=== PATIENT | male | born 1950 | race Caucasian/White ===

== ENCOUNTER 2022-09-03 22:06 | Inpatient (IN) | payer MEDICARE, OTHER ==
[~2022-09-03] VITALS: Ht 175.3 cm; Wt 94.8 kg
[2022-09-03 23:06] LABS: BASOPHILS ABSOLUTE AUTO 0.04 K/mm3 (0.00-0.23); BASOPHILS PERCENT AUTO 0 % (0-2); EOSINOPHILS PERCENT AUTO 0 % (0-6); Hematocrit 50.5 % (37.0-53.0); Hemoglobin 17.3 g/dL (13.5-17.5); IMMATURE GRAN ABSOLUTE AUTO 0.04 K/mm3 (0.00-0.10); IMMATURE GRAN PERCENT AUTO 0 % (0-1); LYMPHOCYTES ABSOLUTE AUTO 0.78 K/mm3 (0.84-5.20); LYMPHOCYTES PERCENT AUTO 7 % (21-46); MONOCYTES ABSOLUTE AUTO 0.53 K/mm3 (0.16-1.47); MONOCYTES PERCENT AUTO 4 % (4-13); Mean Corpuscular HGB 31.1 pg (26.0-34.0); Mean Corpuscular HGB Conc 34.3 g/dL (31.5-36.5); Mean Corpuscular Volume 91 fL (80-100); Mean Platelet Volume 9.7 fL (9.1-12.4); NEUTROPHILS ABSOLUTE AUTO 10.64 K/mm3 (1.96-9.15); NEUTROPHILS PERCENT AUTO 89 % (41-73); Platelet Count 206 K/mm3 (150-400); RDW Standard Deviation 39.8 fL (35.1-46.3); Red Blood Cell Count 5.56 M/mm3 (4.30-5.90); White Blood Cell Count 12.03 K/mm3 (4.00-11.30)
[2022-09-03 23:31] LABS: Albumin, Blood 4.3 g/dL (3.4-5.0); Albumin/Globulin Ratio 1.2 (0.8-1.8); Bilirubin, Total 1.1 mg/dL (0.1-1.0); Bun/Creatinine Ratio 20.2 (12.0-20.0); Calcium, Blood 9.5 mg/dL (8.5-10.1); Creatinine, Blood 0.84 mg/dL (0.60-1.20); Globulin, Blood 3.6 g/dL (2.2-4.0); Potassium, Blood 4.8 mmol/L (3.5-5.5); Total Protein, Blood 7.9 g/dL (6.4-8.2)
[2022-09-04] VITALS (16 sets, daily range): BP systolic 109–157; BP diastolic 55–86
[2022-09-04] MEDS ORDERED: CELEBREX200 MG PO (01:23)
[2022-09-04] MEDS ORDERED: EUTHYROX100 MC1 PO (01:24)
[2022-09-04] MEDS ORDERED: Simvastatin40 MG PO (01:24)
[2022-09-04] MEDS ORDERED: LOSARTAN POTASS25 M2 PO (01:24)
[2022-09-04] MEDS ORDERED: TAMSULOSIN HCL0.4 M1 PO (03:36)
--- NOTE | 2022-09-04 05:04 | NUR ---
PATIENT IS A NEW ADMIT FROM THE ED. AXOX 4 AND INDEPENDENT TRANSFER FROM [facility] TO BED. NPO. NG TUBE PLACED IN ED AND HOOKED UP TO SUCTION. REPORTS TOLERABLE ABDOMINAL PAIN 3/10. DENIES CHEST PAIN, SOB, AND N/V. ON ROOM AIR. VSS/AFEBRILE. SPOUSE PRESENT ON ADMIT AND REQUEST TO STAY NOT WANTING TO DRIVE IN DARK. BLANKET AND PILLOW PROVIDED. PATIENT ORIENTED TO ROOM AND CALL LIGHT SYSTEM. NS STARTED INFUSING AT 125 mL/HR. CALL LIGHT IN REACH. BED IN LOWEST POSITION. WCTM.
--- NOTE | 2022-09-04 11:09 | NUR ---
SURGERY DR ESPARZA HERE. PT VERBALLY CONSNETED TO SURGERY. ARRIVED. BLOOD CONSENT SIGNED. RANDELL,,Jihan RM FROM [facility] HERE TO TRANSPORT PT TO SURGERY. CONTINUE POC.
--- NOTE | 2022-09-04 11:43 | NUR ---
THE PATIENT WAS BROUGHT TO [facility] FOR HIS PROCEDURE.
--- NOTE | 2022-09-04 11:49 | NUR ---
ASSUMED CARE AT 1145, REPORT FROM RAMBO ROBIN
--- NOTE | 2022-09-04 14:53 | NUR ---
PT ARRIVED FROM PACU, A&OX4, VSS/2LNC, SCOOTED FROM GURNEY TO BED W/O ASSIST, DENIES PAIN, DENIES N&V, AT BEDSIDE.
--- NOTE | 2022-09-04 18:02 | NUR ---
SHIFT SUMMARY PT A&OX4, VSS/2L-TCDB & I.S. EDU/ENC/DEMONSTRATED. MEGGAN PO, ICE CHIPS 60 MLS POSTOP. PAIN MANAGED NORCO 5 MG X1. VOIDED 100 MLS. IVF @ 125 MLS/HR. S/P EXP LAP, RENATO, SB RESECTION, CATALINO WNL. WILL REPORT TO ONCOMING ANGELA ROBIN.
[2022-09-05 03:21] VITALS: BP 155/69
--- NOTE | 2022-09-05 03:58 | NUR ---
SHIFT SUMMARY POD1 EX LAP, CATALINO DRESSING TO MIDLINE ABD, SHOWS SLIGHT SHADOWING IN CENTER. PATIENT IS AOX4, SBA IN ROOM. VOIDING IN URINAL. REPORTS NO FLATUS OF BM. HAVING MILD PAIN MEDICATED PER EMAR. TOLERATES WELL. VITALS SIGNS WNL. CALL LIGHT IN REACH. WILL REPORT TO DAY RN.
[2022-09-05 06:56] LABS: Hematocrit 44.6 % (37.0-53.0); Hemoglobin 14.9 g/dL (13.5-17.5); Mean Corpuscular HGB 31.4 pg (26.0-34.0); Mean Corpuscular HGB Conc 33.4 g/dL (31.5-36.5); Mean Corpuscular Volume 94 fL (80-100); Mean Platelet Volume 9.4 fL (9.1-12.4); Platelet Count 172 K/mm3 (150-400); RDW Coefficient Variation 12.6 % (11.7-14.2); RDW Standard Deviation 43.8 fL (35.1-46.3); Red Blood Cell Count 4.75 M/mm3 (4.30-5.90); White Blood Cell Count 11.29 K/mm3 (4.00-11.30)
[2022-09-05 07:03] VITALS: BP 159/75
[2022-09-05 07:16] LABS: Bun/Creatinine Ratio 28.9 (12.0-20.0); Calcium, Blood 8.3 mg/dL (8.5-10.1); Creatinine, Blood 0.93 mg/dL (0.60-1.20); Potassium, Blood 4.4 mmol/L (3.5-5.5)
--- NOTE | 2022-09-05 08:10 | NUR ---
DENIES ANY NEED FOR PAIN MEDS AT THIS TIME, DENIES ANY NAUSEA, TOLERATING SIPS AND ICE CHIPS WELL, AMBULATING INDEPENDENTLY, USING IS, DENIES PASSING FLATUS, CONT. TO MONITOR FOR ANY CHANGES.
[2022-09-05 14:58] VITALS: BP 153/69
--- NOTE | 2022-09-05 17:39 | NUR ---
SUMMARY INDEPENDENT IN ROOM, AMBULATED DOWN THE HALLS X3 TODAY, TOLERATED WELL, DENIES PASSING ANY FLATUS TODAY, MEDICATED ONCE FOR PAIN W/ 1 NORCO, NO C/O NAUSEA, TOLERATING SIPS OF WATER AND ICE CHIPS WELL, NO ACUTE CHANGES THIS SHIFT.
[2022-09-05 19:18] VITALS: BP 151/74
--- NOTE | 2022-09-06 03:41 | NUR ---
SHIFT SUMMARY PATIENT IS AOX4, IND. IN ROOM. POD2 EX LAP, MIDLINE WITH CATALINO AND SHADOWING TO THE CENTER OF DRESSING. REPORTS NO FLATUS HYPOACTIVE BOWEL TONES. PATIENT USING I.S. AT BEDSIDE. PAIN MANAGED WELL. VOIDS USING URINAL. RESTS T/O NIGHT. VSS, CALL LIGHT IS IN REACH. WILL REPORT TO DAY RN.
[2022-09-06 05:29] VITALS: BP 146/67
[2022-09-06 07:55] VITALS: BP 145/72
[2022-09-06 08:42] LABS: BASOPHILS ABSOLUTE AUTO 0.03 K/mm3 (0.00-0.23); BASOPHILS PERCENT AUTO 0 % (0-2); EOSINOPHILS ABSOLUTE AUTO 0.08 K/mm3 (0.00-0.68); EOSINOPHILS PERCENT AUTO 1 % (0-6); Hematocrit 41.5 % (37.0-53.0); Hemoglobin 13.9 g/dL (13.5-17.5); IMMATURE GRAN ABSOLUTE AUTO 0.02 K/mm3 (0.00-0.10); IMMATURE GRAN PERCENT AUTO 0 % (0-1); LYMPHOCYTES ABSOLUTE AUTO 0.77 K/mm3 (0.84-5.20); LYMPHOCYTES PERCENT AUTO 10 % (21-46); MONOCYTES ABSOLUTE AUTO 1.05 K/mm3 (0.16-1.47); MONOCYTES PERCENT AUTO 13 % (4-13); Mean Corpuscular HGB Conc 33.5 g/dL (31.5-36.5); Mean Corpuscular Volume 95 fL (80-100); Mean Platelet Volume 9.6 fL (9.1-12.4); NEUTROPHILS ABSOLUTE AUTO 6.19 K/mm3 (1.96-9.15); NEUTROPHILS PERCENT AUTO 76 % (41-73); Platelet Count 147 K/mm3 (150-400); RDW Coefficient Variation 12.3 % (11.7-14.2); RDW Standard Deviation 43.1 fL (35.1-46.3); Red Blood Cell Count 4.35 M/mm3 (4.30-5.90); White Blood Cell Count 8.14 K/mm3 (4.00-11.30)
[2022-09-06 15:12] VITALS: BP 152/78
--- NOTE | 2022-09-06 16:15 | NUR ---
SHIFT SUMMARY POD 2 EX LAP A&O X4, PT IND IN ROOM AND WALKING THE HALLS. MIDLINE INCISION, CATALINO DRESSING HAS MILD DRAINAGE, GREEEN LIGHT FLASHING. ADVANCED TO FULL LIQUID DIET TODAY, TOLERATING WELL. PT HAS MILD DISTENTION AND NO GAS, OR BOWEL MOVEMENT TODAY. PT HAS BEEN TOLERATING PAIN WELL. MEDICATED PER EMAR AFTER WALK.
[2022-09-06 19:25] VITALS: BP 159/78
--- NOTE | 2022-09-06 21:58 | NUR ---
RN TO ROOM AT APROX 0745 FOR ASSESSMENT. PT APPEARS TO BE RESTING COMFORTABLY AT THIS TIME. PT REPORTS FLATUS THIS EVENING. ABD DISTENDED, BT PRESENT. PT STATES HE HAS BEEN AMBULATING T/O THE DAY. DENIES NEED FOR PAIN MEDICATION, REPORTS PAIN 2/10 AND TOLERABLE. PICCO DRESSING TO MIDLINE INCISION C/D/I, COMPRESSED.
--- NOTE | 2022-09-07 04:26 | NUR ---
SHIFT SUMMARY PT HAD ONE SMALL EMESIS FOLLOWING ADMINISTRATION OF 2100 MEDICATIONS, REPORTED NAUSEA RESOLVED FOLLOWING. PT REPORTS FLATUS, ABD DISTENTION DECREASED COMPARED TO BEGINING OF SHIFT. HAS APPEARED TO SLEEP COMFORTABLY T/O REST OF SHIFT. NO REPORTED UNTOLERABLE PAIN.
[2022-09-07 05:24] VITALS: BP 139/72
[2022-09-07 08:05] VITALS: BP 151/65
[2022-09-07 16:44] VITALS: BP 142/67
--- NOTE | 2022-09-07 17:59 | NUR ---
SHIFT SUMMARY POD 3 EX LAP PT A&O X4, AMBULATING THE HALLS WITH . MIDLINE INCISION, CATALINO DRESSING IN PLACE. PT PASSING GAS. NO BOWEL MOVEMENT. PT DENIES ANY PAIN. TOLERATING DIET WELL.
[2022-09-07 19:49] VITALS: BP 131/59
--- NOTE | 2022-09-08 05:06 | NUR ---
SHIFT SUMMARY PT POD 3 EX LAP. MIDLINE INCISION W/CATALINO DRESSING WITH SCANT AMT SS DRAINAGE PRESENT. PT HAS DENIED PAIN T/O SHIFT. APPEARS TO HAVE RESTED COMFORTABLY T/O SHIFT. TOLERATING FULL LIQUIDS WITH NO N/V.
[2022-09-08 05:15] VITALS: BP 141/63
[2022-09-08 07:06] VITALS: BP 143/65
--- NOTE | 2022-09-08 07:49 | NUR ---
A&OX4, DENIES ANY NEED FOR PAIN MEDS AT THIS TIME, ABD SOFT, REPORTS PASSING FLATUS, AND TOLERATING DIET WELL, CONT. TO MONITOR FOR ANY CHANGES, ENCOURAGED TO AMBULATE, MEDICATE FOR PAIN PRN.
[2022-09-08 14:39] VITALS: BP 136/64
--- NOTE | 2022-09-08 14:57 | NUR ---
REPORTS TOLERATED REGULAR LUNCH WELL, DENIES ANY PAIN OR ANY ABD DISCOMFORT.
--- NOTE | 2022-09-08 18:45 | NUR ---
SUMMARY DENIED ANY NEED FOR PAIN MEDS TODAY, STARTED ON REGULAR DIET FOR LUNCH, TOLERATED WELL, DENIES ANY NAUSEA, PASSING FLATUS, NO BM TODAY, PT AMBULAED X4 DOWN THE HALLS, TOOK A SHOWER, OOB TO CHAIR, NO ACUTE CHANGES THIS SHIFT.
[2022-09-08 19:38] VITALS: BP 142/63
[2022-09-09 04:14] LABS: Hematocrit 36.7 % (37.0-53.0); Hemoglobin 12.3 g/dL (13.5-17.5); Mean Corpuscular HGB 31.4 pg (26.0-34.0); Mean Corpuscular HGB Conc 33.5 g/dL (31.5-36.5); Mean Corpuscular Volume 94 fL (80-100); Mean Platelet Volume 9.4 fL (9.1-12.4); Platelet Count 184 K/mm3 (150-400); Red Blood Cell Count 3.92 M/mm3 (4.30-5.90); White Blood Cell Count 6.58 K/mm3 (4.00-11.30)
[2022-09-09 04:39] LABS: Bun/Creatinine Ratio 20.2 (12.0-20.0); Calcium, Blood 8.7 mg/dL (8.5-10.1); Creatinine, Blood 0.89 mg/dL (0.60-1.20); Potassium, Blood 3.9 mmol/L (3.5-5.5)
[2022-09-09 05:15] VITALS: BP 143/77
--- NOTE | 2022-09-09 06:17 | NUR ---
POD 4 S/P EX LAP+RESECTION. PT VSS T/O NIGHT. CATALINO DRESSING CDI; SEAL AND SX INTACT. ABD MILDLY DISTENDED, SOFT TO PALP, PT DENIED N/V, REP +FLATUS, NO BM YE, IS VOIDING URINE W/O DIFFICULTY. PT AMB INDEP IN ROOM, MEGGAN WELL.
[2022-09-09 06:59] VITALS: BP 132/72
--- NOTE | 2022-09-09 10:38 | NUR ---
PT AWAKE DURING SHIFT REPORT. PT HOPING TO GO HOME TODAY. UP INDEPENDENTLY IN RM AND WALKING HALLS MULTIPLE TIMES. PER PT AND REPORT, PT IS PASSING GAS, BUT NO BM OF THIS AM. PT EATING AND DRINKING WELL, TOLERATING PO W/O DIFFICULTY. NO C/O PAIN. DR CYR IN TO SEE PT AND DISCUSS PLAN OF CARE. SX TO SEE PT AND CLEAR HIM FOR D/C HOME. REPORT GIVEN TO STANLEY ROBIN.
[2022-09-09 14:12] VITALS: BP 123/61
[2022-09-09 19:20] VITALS: BP 158/67
--- NOTE | 2022-09-09 19:52 | NUR ---
SHIFT SUMMARY ALERT, ORIENTED, INDEPENDENT. FREQUENT WALKS IN HALLS WITH SPOUSE. MIDLINE ABD INCISION CHANGED FROM CATALINO TO MEDIPORE BY DR ESPARZA. REPORTS PAIN TOLERABLE. TOLERATING REGULAR DIET AND LIQUIDS. BLADDER RETENTION TOWARD END OF SHIFT. UNABLE TO VOID. BLADDER SCAN VOLUME 700. STRAIGHT CATH 750 OUT. REPORT GIVEN TO RESTORATIVE AIDE RN.
[2022-09-10 05:20] VITALS: BP 149/74
[2022-09-10 07:03] VITALS: BP 141/69
--- NOTE | 2022-09-10 07:28 | NUR ---
POD 5 S/P EX LAP+RESECTION. PT VSS T/O NIGHT. MEDIPORE DRESSING W/SMALL AMT SS DRNG. PT DENIED PAIN, N/V. ABD SOFT, MILDLY DISTENDED, PT PASSING FLATUS AND LIQ BM, REP STOOL BECOMING MORE SOLID THIS AM. PT IS VOIDING URINE W/O DIFFICULTY. PT AMB INDEP IN ROOM, IS EAGER TO D/C HOME.
[2022-09-10 11:24] LABS: Source, Urine Straight Cath
[2022-09-10 11:43] LABS: Appearance, Urine Clear (Clear); Bilirubin, Urine Neg (Neg); Blood, Urine 1+ (Neg); Color, Urine Yellow (P-Yellow); Glucose Qualitative, Urine Neg (Neg); Ketones, Urine Neg (Neg); Leukocyte Esterase, Urine Neg (Neg); Nitrite, Urine Neg (Neg); Protein, Urine Neg (Neg); Urobilinogen, Urine NORM (Normal)
[2022-09-10 12:00] LABS: Bacteria Rare /hpf; Hyaline Casts 0-2 /lpf (0-2); Red Blood Cells, Urine 0-2 /hpf (0-2); White Blood Cells, Urine 0-2 /hpf (0-5)
[2022-09-10 12:01] LABS: Mucus Light (0-Heavy); Squamous Epithelial Cells Rare /hpf (Few)
[2022-09-10] MEDS ORDERED: FAMO20 PO (13:50)
--- NOTE | 2022-09-10 14:37 | NUR ---
DISCHARGE SUMMARY ALERT, ORIENTED, AND INDEPENDENT IN ROOM. AMBULATING IN HALLS. TOLERATING REGULAR DIET AND LIQUIDS. REPORTS PASSING GAS AND MULTIPLE SOFT/LIQUID BMS. VOIDING WELL THIS SHIFT, DENIES SENSATIONS OF RETENTION. UA UNREMARKABLE. MIDLINES ABD INCISION WNL, MEDIPORE INTACT WITH SCANT SS SHADOWING. REPORTS PAIN LOW AND TOLERABLE. DECLINES PAIN MEDICATION. DISCHARGE ORDER PLACED BY DR HERRERA. DISCHARGE EDUCATION GIVEN ON DIET, ACTIVITY, INCISION CARE, WHEN TO CALL OR RETURN TO ER FOR URINARY SYMPTOMS OR INFECTION, FOLLOW UP APPTS WITH PCP AND DR ESPARZA. RX FAXED TO [facility] ON [address]. IV DC'D WNL. PATIENT LEFT UNIT AT 1430 VIA WHEELCHAIR WITH SPOUSE FOR HOME.
== END 2022-09-10 14:24 | disposition home or self-care (01) | DRG 329 ==
LOC: ER 22:06 → MEDS 09-04 03:43 → SURS 09-04 03:43 → MEDS 09-04 04:00 → SURS 09-04 14:43
PROVIDERS: Emergency Medicine; Family Medicine; Surgery; ADMIT Internal Medicine
PROC: 0DB80ZZ Excision of Small Intestine, Open Approach (ICD-10-PCS; principal; 2022-09-04 13:00)
DX: K56.50 Intestinal adhesions [bands], unspecified as to partial versus complete obstruction (principal); K66.1 Hemoperitoneum; I10 Essential (primary) hypertension; N40.1 Benign prostatic hyperplasia with lower urinary tract symptoms; E78.5 Hyperlipidemia, unspecified; R33.8 Other retention of urine; E03.9 Hypothyroidism, unspecified; Z86.19 Personal history of other infectious and parasitic diseases; Z98.890 Other specified postprocedural states; Z79.890 Hormone replacement therapy; Z79.899 Other long term (current) drug therapy
CPT/HCPCS: 36415; 71045; 74177; 80048; 80053; 81001; 85025; 85027; 88307; 93005; 93010; 94760; 96374-59; 96375; 99285-25; A9270; J0690; J1100; J1170; J1650; J1885; J2250; J2270; J2405; J2704; J2710; J3010; J7030; J7120; Q9967